=== PATIENT | female | born 1965 | race Caucasian/White ===

== ENCOUNTER 2024-04-08 06:03 | Emergency (ER) | payer SELFPAY ==
[2024-04-08 06:04] VITALS: BP 160/75; PULSE 104; RESP 18; TEMP 37.1; O2SAT 98; BMI 36.8
--- NOTE | 2024-04-08 06:29 | EX.ED.DYSGE1 ---
HPI History of Present Illness Chief Complaint: Dental Informant: patient Narrative Narrative: Patient is a 58-year-old female with past medical history of Graves' disease as well as bad teeth. She states over the last 2 to 3 days she has noticed right sided dental pain and facial swelling. She states there has been no fevers or chills no difficulty breathing or swallowing and she denies any trauma. She states that as the swelling has increased over the last day she has concern for developing infection and therefore comes in for evaluation. [facility] Medical History (Updated 04/10/24 @ 02:[address] Darrick Conteh, DO) Graves disease Home Medications ?Medication ?Instructions ?Recorded ?Last Taken ?Type amoxicillin 875 mg-potassium 1 tab PO BID 10 days #20 tabs 04/08/24 Unknown Rx clavulanate 125 mg tablet hydrocodone-acetaminophen 5-325mg 1 tab PO Q6H PRN pain 3 days #12 04/08/24 Unknown Rx 5mg-325mg tabs Allergy/AdvReac Type Severity Reaction Status Date / Time No Known Allergies Allergy Verified 04/08/24 06:07 Social History Smoking Status: Current every day smoker tobacco type: cigarettes ROS ROS ED Constitutional Constitutional ED: Denies chills or fever(s) Eyes Eyes: Denies blurry vision or change in vision ENT ENT ED: Reports other Details: Positive dental pain and facial swelling ; Denies sore throat Cardiovascular Cardiovascular: Denies chest pain Respiratory/Chest Respiratory/Chest: Denies cough or dyspnea Gastrointestinal Gastrointestinal: Denies abdominal pain, diarrhea, nausea or vomiting Genitourinary Genitourinary ED: Denies dysuria Musculoskeletal Musculoskeletal: Denies myalgias or neck pain Integumentary Denies rash Neurologic Neurologic: Denies headache(s) Hematologic/Lymphatic Hematologic/Lymphatic: Denies easy bleeding or easy bruising EXAM Physical Exam Const Vital Signs: 04/08/24 06:04 Temperature 98.7 F Temperature Source Oral Pulse Rate 104 H Respiratory Rate 18 Blood Pressure 160/75 H Blood Pressure Mean 103 Pulse Ox 98 Oxygen Delivery Method Room Air Positive well nourished and well developed General Appearance ED: well developed HEENT Reports moist mucous membranes HEENT Narrative: Multiple dental caries are noted. There is diffuse swelling of the right cheek near the zygomatic arch. No overlying erythema or warmth. There is no obvious induration or fluctuance palpated along the upper gingiva. No airway compromise No secondary findings in the posterior pharynx to suggest infection No signs of ANUG Eyes PERRL and EOMs intact bilaterally Neck supple Neck Narrative: No brawny edema in the submental space to suggest Darin's angina Resp normal respiratory effort and clear to auscultation bilaterally Cardio regular rate and regular rhythm Extremity normal to inspection Neuro oriented x3, CN's II-XII intact bilaterally and no sensory deficits noted Sensorium / Orientation: alert Motor Exam: strength 5/5 throughout Psych mental status grossly normal Skin Skin Narrative: Soft tissue swelling to the right upper cheek near the zygomatic arch as documented above. Otherwise no erythema or warmth or lymphangitic streaking or active drainage noted MDM MDM MDM Narrative Medical decision making narrative: Patient arrived to the hospital hypertensive but otherwise with stable vitals. She reported a few days of upper right dental pain that worsened and progressed to swelling of the right cheek. There is no brawny edema to suggest Darin's angina and she does not have signs of ANUG by physical exam. There is concern for patient developing a dental abscess. This correlates with her soft tissue swelling but I cannot appreciate or palpate any fluctuance internally. Therefore I do not feel she would benefit from any type of incision and drainage. As she is afebrile and denies any history of immunosuppression my concern for systemic infection is low. Therefore do not feel there is need for imaging or laboratory studies. Also patient has not failed outpatient therapy as she has not completed a round of antibiotic. Therefore at this time patient will be placed on antibiotics secondary to her exam and history indicating a developing dental abscess. She states she plans on following up with the dentist but this time as physical exam and history is indicating developing infectious process should be given antibiotics and as she does not have signs of respiratory distress airway compromise or septicemia be discharged home History & Record Review Discussion w/independent historian: Patient Discharge Plan Triage Chief Complaint: Dental ED Provider: Darrick Conteh Dx/Rx/DC Orders Clinical Impression: Dental abscess, Dental caries, Graves disease Instructions: Dental Abscess Prescriptions: New amoxicillin-pot clavulanate 875-125 mg tablet 1 tab PO BID 10 Days Qty: 20 0RF hydrocodone-acetaminophen 5-325 mg tablet 1 tab PO Q6H PRN (Reason: pain) 3 Days Qty: 12 0RF Primary Care Provider: Care Physician,No Primary Activity Restrictions/Additional Instructions: Please take your antibiotic as directed to resolve your infection and follow-up with your dentist for further evaluation. If you have any further concerns or worsening of symptoms please return for repeat evaluation Print Language: Italian Disposition Disposition: Home, Self Care Discharge Date/Time: 04/08/24 06:45
[2024-04-08] MEDS: Amox/Clavulanate 875 MG Tablet PO (06:36)
[2024-04-08 06:44] VITALS: BP 146/86; PULSE 76; RESP 16; TEMP 36.6; O2SAT 98
== END 2024-04-08 06:45 | disposition home or self-care (01) ==
PROVIDERS: Emergency Provider Emergency Medicine; Visit Provider Emergency Medicine
DX: K04.7 Periapical abscess without sinus (principal); K02.9 Dental caries, unspecified; E05.00 Thyrotoxicosis with diffuse goiter without thyrotoxic crisis or storm; F17.210 Nicotine dependence, cigarettes, uncomplicated
CPT/HCPCS: 99282